=== PATIENT | male | born 1995 | race Two or more races ===

== ENCOUNTER 2018-05-09 07:06 | Emergency (ER) | payer MEDICAID, OTHER ==
[~2018-05-09] VITALS: Ht 180.3 cm; Wt 102.1 kg
[2018-05-09 07:20] VITALS: BP 125/77
== END 2018-05-09 08:17 | disposition home or self-care (01) ==
LOC: ER 07:06
DX: J02.9 Acute pharyngitis, unspecified (principal); R51 Headache